=== PATIENT | male | born 1970 | race Caucasian/White ===

== ENCOUNTER → 2023-12-22 | Outpatient (CLI) | payer OTHER | END | disposition home or self-care (01) | LOC: OIH 11:18 | PROVIDERS: ATTEND Student in an Organized Health Care Education/Training Program | DX: Z13.6 Encounter for screening for cardiovascular disorders (principal); R93.1 Abnormal findings on diagnostic imaging of heart and coronary circulation | CPT/HCPCS: 75571 ==